=== PATIENT | female | born 1985 | race Caucasian/White ===

== ENCOUNTER → 2018-03-12 | Outpatient (CLI) | payer BC | LOC: FIMAGING 15:06 | PROVIDERS: ATTEND Advanced Practice Midwife | DX: O44.53 Low lying placenta with hemorrhage, third trimester (principal); O99.283 Endocrine, nutritional and metabolic diseases complicating pregnancy, third trimester; E03.9 Hypothyroidism, unspecified; Z3A.27 27 weeks gestation of pregnancy ==

== ENCOUNTER → 2018-04-13 | Outpatient (CLI) | payer BC | LOC: FIMAGING 13:41 | PROVIDERS: ATTEND Obstetrics & Gynecology | DX: O99.283 Endocrine, nutritional and metabolic diseases complicating pregnancy, third trimester (principal); E03.9 Hypothyroidism, unspecified; Z82.79 Family history of other congenital malformations, deformations and chromosomal abnormalities; Z82.49 Family history of ischemic heart disease and other diseases of the circulatory system; Z3A.32 32 weeks gestation of pregnancy ==

== ENCOUNTER 2018-05-25 13:53 | Inpatient (IN) | payer BC ==
[2018-05-25 14:20] LABS: PLATELET COUNT 191 10^3/uL (150-400)
[2018-05-25] MEDS ORDERED: LIDOCAINE 1% 300 MG/30 ML SDV ONE (15:22)
[2018-05-25] MEDS ORDERED: OXYTOCIN 10 UNIT/ML VIAL ONE (15:23)
[2018-05-25] MEDS ORDERED: OLIVE OIL 118 ML BTL ONE (15:23)
[2018-05-25] MEDS ORDERED: AMMONIA AROMATIC 1 EACH AMP IH ONE (15:23)
[2018-05-25] MEDS ORDERED: MISOPROSTOL 200 MCG TAB ONE (15:23)
[2018-05-25] MEDS ORDERED: IBUPROFEN 600 MG TAB PO PRN (16:43)
[2018-05-25] MEDS ORDERED: LIDOCAINE 1% 300 MG/30 ML SDV SC PRN (16:43)
[2018-05-25] MEDS ORDERED: OLIVE OIL 118 ML BTL MISC PRN (16:43)
[2018-05-25] MEDS ORDERED: EPSOM SALT 454 GM TP PRN (16:43)
[2018-05-25] MEDS ORDERED: LR 1,000 ML IV PRN (16:43)
[2018-05-25] MEDS ORDERED: TERBUTALINE SULFATE 1 MG/ML VIAL IV PRN (16:43)
[2018-05-25] MEDS ORDERED: MISOPROSTOL 200 MCG TAB PR PRN (16:43)
[2018-05-25] MEDS ORDERED: OXYTOCIN/RINGERS LACTATE 1,000 ML IV PRN (16:43)
--- NOTE | 2018-05-25 16:43 | PDGENHP ---
History and Physical History and Physical: Care: [facility] HPI: Arianne is a 37 yo with IUP@38-4 weeks that presents to L&D from oB 2/ 2 elevated BP's x 2 episodes in clinic. She has had Pre E labs done- which have been normal, labs are pending at this time. She denies any headaches, visual changes, epigastric pain. She denies any contractions, LOF, VB. She reports + FM. EDC: 06/04/18 which is based on LMP: 08/29/17 which is known and consistent with Ultrasound at 12weeks. Her is complicated by: KANDIS @18wks, carpal tunnel, hypothyroid, Review of Systems: Constitutional: Denies any fever, chills, or fatigue HEENT: denies any visual changes, difficulty swallowing, hearing loss Cardiovascular: Denies any chest pain, palpitations, leg swelling Respiratory: denies any cough, wheezing, or shortness of breathe GI: Denies any nausea, vomiting, diarrhea, constipation : denies any dysuria, urgency, frequency, vaginal bleeding Musculoskeletal: denies any muscle or bone pain Skin: denies any rashes Neuro: denies any headache, seizures, lightheadedness, dizziness, or loss of consciousness Psychiatric: denies any depression, anxiety, or SI/HI thoughts HISTORY: Previous OB history: EAB x1 Past medical history: hypothyroid Past surgical history: LEEP, shoulder surgery x2 Social: Denies any alcohol, tobacco, or drug use. Family history: Not relevant Medications: PNV Allergies (list reaction): NKDA LABS: Rh: AB+ ABS: Neg Rubella: Immune HbsAg: NR HIV: NR VDRL: NR 1hr: 98 GC: Neg Chlamydia: Neg Pap: Normal 2017 per pt GBS: neg PHYSICAL EXAM: Constitutional: WN, A&Ox3 HEENT: normocephalic atraumatic, supple Skin: Warm, dry, intact Heart: RRR, no murmur Chest: CTA-B Abdomen: Soft, nontender, gravid SVE: 2/60/-2 Extremities: trace edema, negative homans sign Neuro: grossly normal Psych: normal affect assessment: FHT baseline 145 +accels, no decels, moderate variability Contractions: toco irregular Assessment: 1) [id number] with IUP@ 38-4wks 2) PreEclampsia without severe features 3) GBS negative 4) Cat 1 FHR tracing Plan: 1) Admit to L&D 2) cook catheter placed () 3) cont EFM 4) remove vaginal balloon in AM and consider starting pitocin 5) reassess PRN Today's visit was approximately 45 min, of which >50% of visit 30 min, was spent face to face with pt on direct counseling/coordination of care.
[2018-05-26] MEDS ORDERED: LR 500 ML IV PRN (05:25)
--- NOTE | 2018-05-26 05:29 | OBPROG ---
Labor Progress Note Assessment/Plan: Assessment: [id number] with IUP@ 38-5wks IOL 2/2 PreEclampsia without severe features GBS Negative Cat 1 FHR tracing Plan: start pitocin reassess 2hr/PRN anticipate 05/26/18 05:26 Subjective/Intrapartum Course: 05/26/18 05:27 Pt doing well, was able to rest some. States cook catheter came out. Denies any LOF. Reports minimal spotting. Reports +FM. She denies any headaches, visual changes, epigastric pain. Objective: 05/25/18 14:02 05/25/18 14:02 Patient ABO/Rh AB POSITIVE 05/25/18 17:25 Uric Acid 3.7 mg/dL (2.5-6.8) 05/25/18 14:02 AST 21 IU/L (14-46) 05/25/18 14:02 ALT 24 IU/L (9-52) 05/25/18 14:02 Lactate Dehydrogenase 496 IU/L (313-618) 05/25/18 14:02 - SVE Dilation (cm): 4 Effacement (%): 75 Station: -2 Oxytocin Orders Assessment - Pre-Induction/Augmentation Assessment Gestational Age: 38 week(s) and 4 day(s) ICD10 Worksheet Patient Problems: Problems Problem Status Onset Pre-eclampsia affecting , antepartum Acute - ICD10 Problem Qualifiers (1) Pre-eclampsia affecting , antepartum
[2018-05-26] MEDS ORDERED: OXYTOCIN/RINGERS LACTATE 500 ML IV SCH (05:30)
--- NOTE | 2018-05-26 07:42 | OBPROG ---
Labor Progress Note Assessment/Plan: Assessment: Elevated BP Plan: 05/26/18 07:41 Induction of labor Subjective/Intrapartum Course: 05/26/18 05:27 Pt doing well, was able to rest some. States cook catheter came out. Denies any LOF. Reports minimal spotting. Reports +FM. She denies any headaches, visual changes, epigastric pain. 05/26/18 07:41 Assumed care of pt at 0700. Pt comfortable, feeling occasional cramping. Continue IOL. Objective: 05/25/18 14:02 05/25/18 14:02 Patient ABO/Rh AB POSITIVE 05/25/18 17:25 Uric Acid 3.7 mg/dL (2.5-6.8) 05/25/18 14:02 AST 21 IU/L (14-46) 05/25/18 14:02 ALT 24 IU/L (9-52) 05/25/18 14:02 Lactate Dehydrogenase 496 IU/L (313-618) 05/25/18 14:02 - SVE Dilation (cm): 4 Effacement (%): 75 (per last exam) - Contraction Pattern Assessment Current Contraction Pattern: Other (Specify) (occasional) - FHR Assessment Bautista FHR (bpm): 135 FHR Pattern Variability: Moderate FHR Category: 1 Oxytocin Orders Assessment - Pre-Induction/Augmentation Assessment Gestational Age: 38 week(s) and 4 day(s) ICD10 Worksheet Patient Problems: Problems Problem Status Onset Pre-eclampsia affecting , antepartum Acute
--- NOTE | 2018-05-26 18:57 | OBPROG ---
Labor Progress Note Assessment/Plan: Assessment: Elevated BP Plan: 05/26/18 07:41 Induction of labor Subjective/Intrapartum Course: 05/26/18 05:27 Pt doing well, was able to rest some. States cook catheter came out. Denies any LOF. Reports minimal spotting. Reports +FM. She denies any headaches, visual changes, epigastric pain. 05/26/18 07:41 Assumed care of pt at 0700. Pt comfortable, feeling occasional cramping. Continue IOL. 05/26/18 18:51 Pt reports mild contractions. Pitocin has been infusing for >12 hours. Plan for pitocin break so pt can eat and take a nap. Plan resume pitocin at midnight. Objective: 05/25/18 14:02 05/25/18 14:02 Patient ABO/Rh AB POSITIVE 05/25/18 17:25 Uric Acid 3.7 mg/dL (2.5-6.8) 05/25/18 14:02 AST 21 IU/L (14-46) 05/25/18 14:02 ALT 24 IU/L (9-52) 05/25/18 14:02 Lactate Dehydrogenase 496 IU/L (313-618) 05/25/18 14:02 VSS. 131/73. No severe blood pressures. - SVE Dilation (cm): 5 Effacement (%): 80 Station: -1 Membranes: Intact - Contraction Pattern Assessment Current Contraction Pattern: Other (Specify) (occasional) - FHR Assessment Bautista FHR (bpm): 135 FHR Pattern Variability: Moderate FHR Category: 1 Oxytocin Orders Assessment - Pre-Induction/Augmentation Assessment Gestational Age: 38 week(s) and 4 day(s) ICD10 Worksheet Patient Problems: Problems Problem Status Onset Labor, prolonged latent phase Acute Pre-eclampsia affecting , antepartum Acute - ICD10 Problem Qualifiers (1) Labor, prolonged latent phase
[2018-05-26] MEDS ORDERED: MISOPROSTOL 50 MCG CAP PO ONE (23:30)
--- NOTE | 2018-05-27 08:56 | OBPROG ---
Labor Progress Note Assessment/Plan: Assessment: [id number] with IUP@ 38-6 wks IOL 2/2 PreEclampsia without severe features GBS Negative Cat 1 FHR tracing SROM clear fluid Active labor - pitocin off Plan: Patient getting into tub Anticipate 05/27/18 08:56 05/27/18 08:58 Subjective/Intrapartum Course: 05/26/18 05:27 Pt doing well, was able to rest some. States cook catheter came out. Denies any LOF. Reports minimal spotting. Reports +FM. She denies any headaches, visual changes, epigastric pain. 05/26/18 07:41 Assumed care of pt at 0700. Pt comfortable, feeling occasional cramping. Continue IOL. 05/26/18 18:51 Pt reports mild contractions. Pitocin has been infusing for >12 hours. Plan for pitocin break so pt can eat and take a nap. Plan resume pitocin at midnight. 05/27/18 08:53 Pit was started at 0600. SROM at 0800 - clear fluid. Actively laboring - pit now off and patient laboring on her own. Feeling some rectal pressure and urge to push. Going to get into tub. Objective: 05/25/18 14:02 05/25/18 14:02 Patient ABO/Rh AB POSITIVE 05/25/18 17:25 Uric Acid 3.7 mg/dL (2.5-6.8) 05/25/18 14:02 AST 21 IU/L (14-46) 05/25/18 14:02 ALT 24 IU/L (9-52) 05/25/18 14:02 Lactate Dehydrogenase 496 IU/L (313-618) 05/25/18 14:02 - SVE Dilation (cm): 7 Effacement (%): 90 Station: 0 Membranes: SROM Amniotic Fluid Color: Clear - Contraction Pattern Assessment Current Contraction Pattern: Regular, Other (Specify) (occasional) Oxytocin Orders Assessment - Pre-Induction/Augmentation Assessment Gestational Age: 38 week(s) and 4 day(s) ICD10 Worksheet Patient Problems: Problems Problem Status Onset Labor, prolonged latent phase Acute Pre-eclampsia affecting , antepartum Acute
[2018-05-27] MEDS ORDERED: METHYLERGONOVINE MAL 0.2 MG/ML INJ ONE (10:26)
[2018-05-27] MEDS ORDERED: HYDROCODONE/APAP 5/325 TAB PO PRN (11:00)
[2018-05-27] MEDS ORDERED: HYDROCORTISONE 0.5% CREAM TP PRN (11:00)
--- NOTE | 2018-05-27 11:08 | OBDEL ---
Info Type: Vaginal Presentation at Delivery: Vertex L&D Analgesia/Anesthesia Type: None GBS+: No Intrapartum Medications: Generic Name Dose Route Start Last Admin Trade Name Freq PRN Reason Stop Dose Admin Oxytocin/Lactated Ringer's 500 mls @ 0 mls/hr 05/26/18 05:30 05/26/18 05:42 Pitocin 30 Units/Lr (Premix) IV 11/22/18 05:29 500 mls CONT ERNESTO Administration Protocol Per Protocol Discontinued Medications Generic Name Dose Route Start Last Admin Trade Name Freq PRN Reason Stop Dose Admin Lactated Ringer's 1,000 mls @ 0 mls/hr 05/25/18 16:43 05/26/18 06:00 Lr IV 05/26/18 16:42 1,000 mls PRN PRN Administration SEE PROTOCOL CONDITIONS Protocol Per Protocol Misoprostol 50 mcg 05/26/18 23:30 05/27/18 01:57 Cytotec PO 05/26/18 23:31 50 mcg PRN ONE Administration - Hospital Course Intrapartum: 05/26/18 05:27 Pt doing well, was able to rest some. States cook catheter came out. Denies any LOF. Reports minimal spotting. Reports +FM. She denies any headaches, visual changes, epigastric pain. 05/26/18 07:41 Assumed care of pt at 0700. Pt comfortable, feeling occasional cramping. Continue IOL. 05/26/18 18:51 Pt reports mild contractions. Pitocin has been infusing for >12 hours. Plan for pitocin break so pt can eat and take a nap. Plan resume pitocin at midnight. 05/27/18 08:53 Pit was started at 0600. SROM at 0800 - clear fluid. Actively laboring - pit now off and patient laboring on her own. Feeling some rectal pressure and urge to push. Going to get into tub. Indications for Delivery: Preeclampsia Mild Vaginal Delivery - Delivery Provider Delivery Physician/CNM: Teresa Rivas - Labor and Delivery Onset of Contractions Date: 05/26/18 Onset of Contractions Time: 01:40 Onset of Contractions Type: Induced Rupture of Membranes Date: 05/27/18 Rupture of Membranes Time: 08:00 Rupture of Membranes Type: Spontaneous Amniotic Fluid Color: Clear Dilation Complete Date: 05/27/18 Dilation Complete Time: 09:15 Placenta Delivery Date: 05/27/18 Placenta Delivery Time: 10:22 Total Hours of Labor: 32 Laceration: 1st Degree (vaginal - hemostatic, no repair) Vaginal Sponge Count Correct: Yes Vaginal Needle Count Correct: Yes Vaginal Sweep Performed: Yes EBL: 450 Delivery Events: Nuchal Cord (delivered through) Delivery Comment: Uterus boggy after delivery of placenta, required cytotec 800 mcg and Methergine 0.2 mg in addition to IV Pitocin. Hemostatic after meds, uterine massage, -and clots cleared from lower uterine segment and cervix. Total ebl 450 cc. - Medications Labor Augmentation/Induction Methods Used: Pitocin, Misoprostol, Islas Bulb Labor Augmentation/Induction Indication: Other (Specify) (preeclampsia without severe features) [place] Data ELTON: 06/04/18 Gestational Age: 38 week(s) and 6 day(s) Bautista Delivery Date: 05/27/18 Delivery Time: 09:50 Sex of Infant: Female [place] Weight (gm): 3028 g Score (1 Min): 8 Score (5 Min): 9 ICD10 Worksheet Patient Problems: Problems Problem Status Onset Labor, prolonged latent phase Acute Pre-eclampsia affecting , antepartum Acute Vaginal delivery Acute - ICD10 Problem Qualifiers (1) Vaginal delivery
[2018-05-27] MEDS ORDERED: METHYLERGONOVINE MAL 0.2 MG/ML INJ IM STA (11:16)
[2018-05-27] MEDS: ACETAMINOPHEN 325 MG TAB PO SCH ×2 (14:08→20:17)
[2018-05-27] MEDS: DOCUSATE SODIUM 100 MG CAP PO PRN ×2 (14:22→20:18)
[2018-05-27] MEDS: IBUPROFEN 600 MG TAB PO SCH (17:09)
[2018-05-28] MEDS: IBUPROFEN 600 MG TAB PO SCH ×4 (02:07→20:09)
[2018-05-28] MEDS: ACETAMINOPHEN 325 MG TAB PO SCH ×4 (02:09→20:10)
[2018-05-28] MEDS: LEVOTHYROXINE 88 MCG TAB PO SCH (06:29)
[2018-05-28] MEDS: DOCUSATE SODIUM 100 MG CAP PO PRN ×2 (08:19→20:11)
--- NOTE | 2018-05-28 10:56 | OBPP ---
Progress Note Assessment/Plan: Assessment: Plan: 05/28/18 10:55 PPD #1; stable Anemia post hemorrhage 05/28/18 10:55 P: Discussed starting Blood Builder 3 x a day, as well as continuing vitamin. She would rather start that then an iron supplement in hospital. Discussed methods to taking iron to increase absorption. Discharge home tomorrow. Subjective/ Course: 05/28/18 10:53 Overall feeling good. States she felt dizzy yesterday when ambulating but doing much better today. going well. States bleeding has slowed down quite a bit today and only required to change a pad every 3 to 4 hours. Denies HOLLY; visual changes, or epigastric pain. Desires discharge home tomorrow Objective: 05/28/18 04:15 05/25/18 14:02 Patient ABO/Rh AB POSITIVE 05/25/18 17:25 Uric Acid 3.7 mg/dL (2.5-6.8) 05/25/18 14:02 AST 21 IU/L (14-46) 05/25/18 14:02 ALT 24 IU/L (9-52) 05/25/18 14:02 Lactate Dehydrogenase 496 IU/L (313-618) 05/25/18 14:02 Temp Pulse Resp BP Pulse Ox 36.9 C 92 18 117/68 97 05/28/18 08:00 05/28/18 08:00 05/28/18 08:00 05/28/18 08:00 05/28/18 08:00 Blood pressures have all been stable Hct dropped 10 pts Breasts soft; nipples intact bilaterally Uterine Position/Fundal Height: Umbilicus -2 Uterine Tone: Firm
[2018-05-29] MEDS: ACETAMINOPHEN 325 MG TAB PO SCH ×2 (01:45→07:51)
[2018-05-29] MEDS: IBUPROFEN 600 MG TAB PO SCH ×2 (01:46→07:54)
[2018-05-29] MEDS: LEVOTHYROXINE 88 MCG TAB PO SCH (06:16)
[2018-05-29 08:22] VITALS: BP 122/74
--- NOTE | 2018-05-29 09:42 | OBGCSDC ---
General Delivery Information - General Info : 2 Para: 1 Abortions: 1 Type: Vaginal L&D Analgesia/Anesthesia Type: None Admission Date: 05/25/18 Labs: Patient ABO/Rh AB POSITIVE 05/25/18 17:25 Hct 25.7 % (38.0-47.0) L 05/28/18 04:15 - Hospital Course Intrapartum: 05/26/18 05:27 Pt doing well, was able to rest some. States cook catheter came out. Denies any LOF. Reports minimal spotting. Reports +FM. She denies any headaches, visual changes, epigastric pain. 05/26/18 07:41 Assumed care of pt at 0700. Pt comfortable, feeling occasional cramping. Continue IOL. 05/26/18 18:51 Pt reports mild contractions. Pitocin has been infusing for >12 hours. Plan for pitocin break so pt can eat and take a nap. Plan resume pitocin at midnight. 05/27/18 08:53 Pit was started at 0600. SROM at 0800 - clear fluid. Actively laboring - pit now off and patient laboring on her own. Feeling some rectal pressure and urge to push. Going to get into tub. : 05/28/18 10:53 Overall feeling good. States she felt dizzy yesterday when ambulating but doing much better today. going well. States bleeding has slowed down quite a bit today and only required to change a pad every 3 to 4 hours. Denies HOLLY; visual changes, or epigastric pain. Desires discharge home tomorrow 05/29/18 09:40 Feeling well. Pain related to hemorrhoids. Voiding with no problem, had BM. Taking colace and PO pain meds. VSS. D/C home today. Vaginal - Delivery Provider Delivery Physician/CNM: Teresa Rivas - Diagnosis Labor: Induced Rupture of Membranes Type: Spontaneous Amniotic Fluid Color: Clear Laceration: 1st Degree (vaginal - hemostatic, no repair) Delivery Events: Nuchal Cord (delivered through) - Delivery EBL: 450 Data ELTON: 06/04/18 Gestational Age: 39 week(s) and 1 day(s) Bautista Delivery Date: 05/27/18 Delivery Time: 09:50 Sex of : Female [place] Weight (gm): 3028 g Score (1 Min): 8 Score (5 Min): 9 Discharge Information - Discharge Information Instruction/Follow Up: Two Weeks, Four Weeks, Six Weeks (with [facility])
[2018-05-29] MEDS: DOCUSATE SODIUM 100 MG CAP PO PRN (13:56)
== END 2018-05-29 14:05 | disposition home or self-care (01) | DRG 806 ==
LOC: FRFLAB 13:53 → FLD 13:59 → FOB 05-27 18:33
PROVIDERS: ADMIT Advanced Practice Midwife; ATTEND Obstetrics & Gynecology
PROC: 3E030VJ Introduction of Other Hormone into Peripheral Vein, Open Approach (ICD-10-PCS; 2018-05-25)
PROC: 10E0XZZ Delivery of Products of Conception, External Approach (ICD-10-PCS; principal; 2018-05-27)
DX: O14.04 Mild to moderate pre-eclampsia, complicating childbirth (principal); O72.1 Other immediate postpartum hemorrhage; O90.81 Anemia of the puerperium; D62 Acute posthemorrhagic anemia; O70.0 First degree perineal laceration during delivery; O69.81X0 Labor and delivery complicated by cord around neck, without compression, not applicable or unspecified; O99.284 Endocrine, nutritional and metabolic diseases complicating childbirth; E03.9 Hypothyroidism, unspecified; Z3A.38 38 weeks gestation of pregnancy; Z37.0 Single live birth; Z23 Encounter for immunization
CPT/HCPCS: G0008; J2210; J2590